=== PATIENT | male | born 1995 | race Caucasian/White ===

== ENCOUNTER 2016-05-16 18:24 | Emergency (ER) | payer OTHER ==
[~2016-05-16] VITALS: Ht 167.6 cm; Wt 67.0 kg
[~2016-05-16 18:24] MED LIST: CYCL-319 PO; FLUT9.9S NASAL; NAPR550T2 PO; PROM6.25 PO; PSEU30TA38 PO
[2016-05-16 19:05] VITALS: Ht 167.6 cm; Wt 67.0 kg
[2016-05-16] MEDS ORDERED: KETOROLAC 60 MG INJ IM STA (20:06)
[2016-05-16] MEDS ORDERED: TRAM50TA2 PO (20:47)
[2016-05-16] MEDS ORDERED: IBUP-1542 PO (20:47)
--- NOTE | 2016-05-16 23:25 | RADRPT ---
PROCEDURE: Lumbar spine series CLINICAL INDICATION: Low back pain TECHNIQUE: AP, lateral and cone lateral views COMPARISON: None available FINDINGS: The spine alignment is normal. Preservation vertebral body heights and intervertebral disk spaces a re noted. No evidence for acute fractures, traumatic subluxations, spondylolisthesis or spondylolys is is noted. The bilateral pedicles are diffusely intact and normally aligned. The bilateral sacro iliac joints and imaged pelvis are normal. No calcifications project over the bilateral renal colle cting system. IMPRESSION: 1. No acute fractures or traumatic subluxations, spondylolisthesis or spondylolysis. 2. Normal lumbosacral spine series RPTAT: HDC .Selin Villa MD, Date Time Electronically viewed and signed by .Selin Villa MD, on 05/16/2016 23:24 .C/
[2016-05-16 23:58] VITALS: BP 130/67; PULSE 64; RESP 20; TEMP 98.6
--- NOTE | 2016-05-17 11:21 | ERD ---
ER Documentation Chief Complaint Date/Time DATE: 05/17/16 TIME: 11:20 Chief Complaint back pain running down to tight leg x 2 days HPI This 21-year-old male presents with low back pain rating to the right buttock and thigh for last 2 days. He denies any inciting events, fall, trauma, bowel or bladder incontinence, fevers, urinary complaints. Similar episode a few months ago and it feels similar. ROS All systems reviewed and are negative except as per history of present illness. Medications Home Meds Active Scripts Tramadol HCl (Tramadol HCl) 50 Mg Tablet, 50 MG PO Q4 Y for PAIN, #20 TAB Prov:MEEK MARES MD 05/16/16 Ibuprofen* (Motrin*) 600 Mg Tab, 600 MG PO Q6, #20 TAB Prov:MEEK MARES MD 05/16/16 Cyclobenzaprine Hcl* (Cyclobenzaprine Hcl*) 10 Mg Tablet, 10 MG PO Q8 Y for MUSCLE SPASMS, #15 TAB Prov:JOHNIE PEREIRA PA-C 02/20/16 Naproxen* (Naproxen*) 550 Mg Tablet, 550 MG PO BID, #30 TAB Prov:JOHNIE PEREIRA PA-C 02/20/16 Promethazine w/Codeine* (Phenergan w/Codeine* Syrup) 5 Ml Syrup, 5 ML PO Q4H Y for COUGH, #100 ML Prov:ROMAN GAN PA-C 10/14/15 Fluticasone Propionate (Flonase Allergy Relief) 9.9 Ml [place].susp, 1 SPRAY NASAL BID, #1 BOTTLE TO EACH NOSTRIL Prov:ROMAN GAN PA-C 10/14/15 Pseudoephedrine Hcl* (Pseudoephedrine Hcl*) 30 Mg Tablet, 30 MG PO Q6 Y for CONGESTION, #30 TAB Prov:ROMAN GAN PA-C 10/14/15 Allergies Allergies: Coded Allergies: No Known Allergy (Unverified , 10/14/15) PMhx/Soc Medical and Surgical Hx: pt denies Medical Hx, pt denies Surgical Hx History of Surgery: No Anesthesia Reaction: No Hx Neurological Disorder: No Hx Respiratory Disorders: No Hx Cardiac Disorders: No Hx Psychiatric Problems: No Hx Miscellaneous Medical Probl: No (sinusitis) Hx Alcohol Use: No Hx Substance Use: No Hx Tobacco Use: No Smoking Status: Never smoker Physical Exam Vitals Vital Signs Date Time Temp Pulse Resp B/P Pulse Ox O2 Delivery O2 Flow Rate FiO2 05/16/16 23:58 98.6 64 20 130/67 99 Room Air 05/16/16 19:05 97.4 76 20 129/63 100 Physical Exam Const: [] Alert, [id number] per Head: Atraumatic Eyes: Normal Conjunctiva ENT: Normal External Ears, Nose and Mouth. Neck: Full range of motion..~ No meningismus. Resp: Clear to auscultation bilaterally Cardio: Regular rate and rhythm, no murmurs Abd: Soft, non tender, non distended. Normal bowel sounds Skin: No petechiae or rashes Back: No midline or flank tenderness. Mild tenderness in the right L4-L5 area with positive straight leg raise. Ext: No cyanosis, or edema Neur: Awake and alert. Patient has normal gait. No appreciable focal neurologic deficits. Psych: Normal Mood and Affect Results 24 hrs Current Medications Medications (Trade) Dose Ordered Sig/[place] Route PRN Reason Start Time Stop Time Status Last Admin Dose Admin Ketorolac Tromethamine (Toradol) 60 mg ONCE STAT IM 05/16/16 20:06 05/16/16 20:07 DC 05/16/16 21:10 Procedures/MDM X-ray LS-Spine 3V Interpreted by me: Bones: [No fracture] Joints: [No dislocation] Foreign body: [None]. Impression-normal lumbar spine x-ray Patient was given Toradol 60 mg IM. Patient signs and symptoms consistent with sciatica. There is no signs or symptoms to suggest cauda equina syndrome, epidural abscess, fracture, dislocation, neurologic deficit, genitourinary etiology. He will be treated with tramadol and ibuprofen and instructions for back exercises. Patient is advised to follow-up with primary doctor this week or return to ER for new or worsening symptoms. Departure Diagnosis: Primary Impression: Sciatica Laterality: right Qualified Code: M54.31 - Sciatica of right side Condition: Stable Patient Instructions: Back Exercises, Lumbar, Back Pain W/ Sciatica Additional Instructions: Cheque otro vez con morales doctor primario en el proximo cox or regresa para mas o nueva simptomas. MEEK MARES MD May 17, 2016 11:21
== END 2016-05-17 | disposition home or self-care (01) ==
LOC: FTE 18:24
DX: M54.41 Lumbago with sciatica, right side (principal)
CPT/HCPCS: 72100; 96372; J1885; Z7502